=== PATIENT | female | born 1935 | race Caucasian/White ===

== ENCOUNTER 2017-09-03 18:26 | Emergency (ER) | payer OTHER ==
[~2017-09-03] VITALS: Ht 172.7 cm; Wt 61.3 kg
[2017-09-03 18:29] VITALS: Ht 172.7 cm; Wt 61.3 kg
[2017-09-03] MEDS ORDERED: SOD CHLORIDE 0.9% 1,000 ML IV STA (18:49)
--- NOTE | 2017-09-03 19:39 | RADRPT ---
PROCEDURE: XR, Chest. CLINICAL INDICATION: Cough weakness. TECHNIQUE: AP chest COMPARISON: None available. FINDINGS: There is no acute infiltrate in the lungs. The lungs are overinflated. No pleural effusion. There is calcified atherosclerosis of the aortic arch. The heart is somewhat enlarged. IMPRESSION: 1. Overinflated lungs. 2. Cardiomegaly. Calcified atherosclerosis of the aortic arch. RPTAT: GG .Zaki Robison MD, MD Date Time Electronically viewed and signed by .Zaki Robison MD, on 09/03/2017 19:38 .Y/
[2017-09-03 19:45] LABS: ABNORMAL IP MESSAGE 1; BASOPHILS % 0.1 % (0.0-2.0); HEMATOCRIT 33.1 % (37.0-47.0); HEMOGLOBIN 10.9 g/dl (12.0-16.0); LYMPHOCYTES # 0.6 10^3/ul (0.8-2.9); LYMPHOCYTES % 5.4 % (15.0-51.0); MEAN CORPUSCULAR HEMOGLOBIN 30.9 pg (29.0-33.0); MEAN CORPUSCULAR HGB CONC 32.9 g/dl (32.0-37.0); MEAN CORPUSCULAR VOLUME 93.8 fl (82.0-101.0); MEAN PLATELET VOLUME 11.3 fl (7.4-10.4); MONOCYTE # 0.9 10^3/ul (0.3-0.9); MONOCYTES % 8.1 % (0.0-11.0); NEUTROPHIL # 9.1 10^3/ul (1.6-7.5); NEUTROPHILS % 86.1 % (39.0-77.0); PLATELET COUNT 167 10^3/UL (140-415); RED BLOOD COUNT 3.53 10^6/ul (4.20-5.40); RED CELL DISTRIBUTION WIDTH 13.1 % (11.5-14.5); WHITE BLOOD COUNT 10.6 10^3/ul (4.8-10.8)
[2017-09-03 19:52] LABS: POSITIVE DIFF @See below
[2017-09-03 20:02] LABS: CALCIUM 8.8 mg/dl (8.4-10.2); CREATININE 0.93 mg/dl (0.44-1.00); POTASSIUM 4.4 mmol/L (3.5-5.1)
[2017-09-03 20:04] LABS: INR 2.7; PARTIAL THROMBOPLASTIN TIME 33.1 Sec (25.0-35.0); PT RATIO 2.3
[2017-09-03 20:16] LABS: TROPONIN-I 0.134 ng/ml (0.00-0.12)
--- NOTE | 2017-09-03 20:45 | RADRPT ---
PROCEDURE: CT Brain without contrast. CLINICAL INDICATION: Neurologic deficits. Possible stroke. TECHNIQUE: A CT of the brain was performed on a multidetector CT scanner utilizing axial sections from the skull base through the vertex without contrast. Images were reviewed on a high-resolution [employer] workstation. Exam CTDI = 43.86 mGy and the DLP = 720.23 mGy-cm. DICOM images are available. One or more of the following dose reduction techniques were used: Automated exposure control Adjustment of the mA and/or kV according to patient size. Use of iterative reconstruction technique. COMPARISON: None available FINDINGS: There is age appropriate mild generalized volume loss. There is no evidence of intracranial hemorrha ge, mass effect or midline shift. No abnormal intra-axial or extra-axial fluid collections are seen . The density of the brain is normal and the culp/white matter differentiation is well preserved. Mild patchy diffuse deep white matter microangiopathic ischemic change is seen. There is thinning of the bilateral lenses. The osseous structures are unremarkable. Paranasal sinuses are clear. Vas cular calcifications are identified. IMPRESSION: 1. No intracranial hemorrhage, mass effect or midline shift. No CT evidence of recent territorial i nfarct. 2. Mild microangiopathic ischemic change. 3. Intracranial atherosclerosis. RPTAT: HHO .Kati Yun MD, MD Date Time Electronically viewed and signed by .Kati Yun MD, on 09/03/2017 20:45 .O/
[2017-09-03] MEDS ORDERED: morphine 4 MG/ML VIAL IV STA (20:54)
[2017-09-03] MEDS ORDERED: ASPIRIN 81 MG TAB PO ONE (21:00)
--- NOTE | 2017-09-03 21:54 | ERD ---
ER Documentation Chief Complaint Chief Complaint ALOC s/p Morphine IM due to arm fx today; seen at [facility] 61-year-old male female presents with a episode of lightheadedness and confusion. Chest pain, shortness of breath, any other pain or nausea however the patient is demented. Much of the history is taken from the patient's daughter states that she is returning to her normal mental status. She was seen earlier today [place] for humerus fracture and placed in an arm splint. She was given narcotic pain medication that her daughter believes may have contributed to her confusion. ROS All systems reviewed and are negative except as per history of present illness. Allergies Allergies: Coded Allergies: codeine (Unverified Allergy, Intermediate, Rash, 09/03/17) Physical Exam Vitals Vital Signs Date Time Temp Pulse Resp B/P Pulse Ox O2 Delivery O2 Flow Rate FiO2 09/03/17 20:27 73 17 140/72 100 Room Air 09/03/17 18:29 98.1 70 16 143/66 95 Physical Exam Const: [] No obvious distress. Head: Atraumatic Eyes: Normal Conjunctiva ENT: Normal External Ears, Nose and Mouth. Neck: Full range of motion..~ No meningismus. Resp: Clear to auscultation bilaterally Cardio: Regular rate and rhythm, no murmurs Abd: Soft, non tender, non distended. Normal bowel sounds Skin: No petechiae or rashes Ext: No cyanosis, or edema, left arm is in a shoulder immobilizer with distal pulses intact. Neur: Awake and alert and oriented 3, no focal deficits Psych: Normal Mood and Affect Result Diagram: 09/03/17190409/03/171904 Results 24 hrs Laboratory Tests Test 09/03/17 19:05 09/03/17 20:52 White Blood Count 10.610^3/ul Red Blood Count 3.5310^6/ul Hemoglobin 10.9g/dl Hematocrit 33.1% Mean Corpuscular Volume 93.8fl Mean Corpuscular Hemoglobin 30.9pg Mean Corpuscular Hemoglobin Concent 32.9g/dl Red Cell Distribution Width 13.1% Platelet Count 66605^3/UL Mean Platelet Volume 11.3fl Neutrophils % 86.1% Lymphocytes % 5.4% Monocytes % 8.1% Eosinophils % 0.0% Basophils % 0.1% Nucleated Red Blood Cells % 0.0/100WBC Neutrophils # 9.110^3/ul Lymphocytes # 0.610^3/ul Monocytes # 0.910^3/ul Eosinophils # 0.010^3/ul Basophils # 0.010^3/ul Nucleated Red Blood Cells # 0.010^3/ul Prothrombin Time 29.0Sec Prothrombin Time Ratio 2.3 INR International Normalized Ratio 2.70 Activated Partial Thromboplast Time 33.1Sec Sodium Level 140mmol/L Potassium Level 4.4mmol/L Chloride Level 102mmol/L Carbon Dioxide Level 33mmol/L Anion Gap 9 Blood Urea Nitrogen 23mg/dl Creatinine 0.93mg/dl Glucose Level 129mg/dl Calcium Level 8.8mg/dl Troponin I 0.134ng/ml 0.147ng/ml Current Medications Medications (Trade) Dose Ordered Sig/Nathanael Route PRN Reason Start Time Stop Time Status Last Admin Dose Admin Sodium Chloride (NS) 1,000 ml @ 1,000 mls/hr Q1H STAT IV 09/03/17 18:49 09/03/17 19:48 DC 09/03/17 19:39 Morphine Sulfate (morphine) 4 mg ONCE STAT IV 09/03/17 20:54 09/03/17 20:55 DC 09/03/17 20:59 Aspirin (Aspirin) 324 mg ONCE ONCE PO 09/03/17 21:00 09/03/17 21:01 DC 09/03/17 21:11 Procedures/MDM Temporary altered mental status and lightheadedness that may have been related to narcotic pain medication however patient also has an elevated troponin. She has cardiac risk factors including coronary artery disease, hypertension and hyperlipidemia. EKG is nonischemic currently the patient has no chest pain. However given the symptomatology and elevated troponin with normal renal function I believe she should be admitted for trending of her troponins and monitoring. She is a [facility] patient insurance dictates that she be transferred. I spoke with a doctor at [facility] who will accept the transfer. EKG interpretation: Normal sinus rhythm rate of 72, normal axis, nonspecific interventricular conduction delay, no ST or T-wave changes concerning for acute ischemia. Departure Diagnosis: Primary Impression: Near syncope Additional Impressions: Transient confusion Elevated troponin level Intraventricular conduction delay Condition: Serious DAIANA VILLEGAS DO Sep 03, 2017 21:54
[2017-09-03] MEDS ORDERED: AMLO2.5T78 PO (22:43)
[2017-09-03] MEDS ORDERED: CARV3.1260 PO (22:43)
[2017-09-03] MEDS ORDERED: ATOR40TA68 PO (22:52)
[2017-09-03] MEDS ORDERED: ASPI-535 PO (22:52)
[2017-09-03] MEDS ORDERED: OMEG1CAP2 PO (22:52)
[2017-09-03] MEDS ORDERED: LEVO75TA5 PO (22:52)
[2017-09-03] MEDS ORDERED: CYCL1DRO BOTH EYES (22:54)
[2017-09-04] MEDS ORDERED: morphine 4 MG/ML VIAL IV STA (01:16)
[2017-09-04 02:06] VITALS: BP 176/74; PULSE 78; RESP 16; TEMP 98.4
== END 2017-09-04 02:10 | disposition short-term general hospital (02) ==
LOC: E/R 18:26
DX: I45.9 Conduction disorder, unspecified (principal); R41.0 Disorientation, unspecified; R79.89 Other specified abnormal findings of blood chemistry; R07.9 Chest pain, unspecified
CPT/HCPCS: 36415; 70450; 71010; 80048; 84484; 85025; 85610; 85730; 93005; 96374; 96376; 99285; J2270; J7030